=== PATIENT | female | born 1975 | race Caucasian/White ===

== ENCOUNTER → 2020-07-25 13:41 | Outpatient (CLI) | payer OTHER, SELFPAY ==
--- NOTE | ~2020-07-25 | MM_ITS ---
EXAMINATION: MM screening [place] BI w elder HISTORY: Screening TECHNIQUE: Craniocaudal and mediolateral oblique 3-D tomosynthesis images were obtained and synthetic 2-D images were generated. CAD analysis was submitted and interpreted. COMPARISON: Comparison to multiple prior studies sequentially, with oldest reviewed study dated 04/24. BREAST PARENCHYMAL COMPOSITION: The breasts are heterogeneously dense, which may obscure small masses . FINDINGS: There is no evidence of suspicious mass, calcification, or architectural distortion to sugg est malignancy in either breast. There has been no suspicious interval change. IMPRESSION: 1. No mammographic evidence of malignancy. 2. Recommend routine screening mammography in one year. BI-RADS Category 1: Negative Reviewed, dictated and finalized at location A. [employer]
== END ==
PROVIDERS: PCP Nurse Practitioner Family; Visit Provider Obstetrics & Gynecology Gynecology
DX: Z12.31 Encounter for screening mammogram for malignant neoplasm of breast (principal)
CPT/HCPCS: 77063; 77067

== ENCOUNTER → 2021-08-04 12:34 | Outpatient (CLI) | payer OTHER, SELFPAY ==
--- NOTE | ~2021-08-04 | MM_ITS ---
EXAMINATION: MM screening [facility] BI w elder HISTORY: Screening mammogram TECHNIQUE: Craniocaudal and mediolateral oblique 3-D tomosynthesis images were obtained and synthetic 2-D images were generated. CAD analysis was submitted and interpreted. COMPARISON: 07/25/2020, 03/31/2019, 03/04/2018 BREAST PARENCHYMAL COMPOSITION: The breasts are heterogeneously dense, which may obscure small masses . FINDINGS: There is no evidence of suspicious mass, calcification, or architectural distortion to sugg est malignancy in either breast. There has been no suspicious interval change. IMPRESSION: 1. No mammographic evidence of malignancy. 2. Recommend routine screening mammography in one year. BI-RADS Category 1: Negative Reviewed, dictated and finalized at location A.
== END ==
PROVIDERS: PCP Family Medicine; Visit Provider Nurse Practitioner
DX: Z12.31 Encounter for screening mammogram for malignant neoplasm of breast (principal)
CPT/HCPCS: 77063; 77067

== ENCOUNTER 2022-01-21 00:12 | Day surgery (SDC) | payer OTHER, SELFPAY ==
[2022-01-14 08:47] VITALS: BMI 22.0
--- NOTE | 2022-01-20 13:36 | P.PNAN_ITS ---
Anes - Initial Pre Proc Eval Procedure: Operation Date: 01/21/22 07:30 Proposed Procedures p Esophagogastroduodenoscopy & Screening Colonoscopy - Colin Nick MD Date/Time: 01/20/22 13:36 Surgeon: oClin Ca MD Pre Op Diagnosis: abnormal IGG, neoplasm screening Patient Data Age: 46 Gender: F Height: 1.65 m Weight: 60 kg Allergies Allergy/AdvReac Type Severity Reaction Status Date / Time No Known Allergies Allergy Unverified 09/10/21 09:56 Home Medications Medication Instructions Recorded Confirmed Type [id number] 500 - 1,000 cap PO BID 09/10/21 01/14/22 History 500 mg-1,000 unit-500 mcg cap (Animi-3 With Vitamin D) vitamin B12 1,000 mcg-folic acid 1,000 tablet sublingual 1XD 09/10/21 01/14/22 History 400 mcg sublingual tablet sodium sul 1.479 gram-potas ch See Rx Instructions PO PER PKG DIR 10/03/21 01/14/22 Rx 0.188 gram-magnes sul 0.225 gram #24 tabs tablet (Sutab) Lo Loestrin Fe 1 mg BYMOUTH 1XD 01/14/22 01/14/22 History Patient hx anesthesia problems: none Family hx anesthesia problems: none Results Review: All pre-operative results and documents have been reviewed as part of the pre- operative evaluation. [facility] Past Medical History Medical History (Updated 01/20/22 @ 13:36 by Jacob Bridges MD) Anxiety Surgical History Surgical History (Updated 09/10/21 @ 09:58 by Idania Bain MA) H/O spinal fusion Family History Family History (Updated 09/10/21 @ 10:05 by Idania Bain MA) Father Diabetes mellitus Heart disease Hypertension Mother Heart disease Hypertension Social History Social History (Updated 09/10/21 @ 09:58 by Idania Bain MA) Years smoked: 5 Smoking status: Former smoker Tobacco type: cigarettes Second hand tobacco smoke exposure: No Alcohol intake: never Substance use: never Substance use type: does not use Living arrangements: with family Gender identity (if verbalized by the patient): Female Spiritual care concerns: No Anes - Eval Final PreProcedure Day of Procedure 01/20/22 13:36 Patient weight: normal Heart: regular rate and rhythm Lungs: clear to auscultation and normal air movement Airway: Mallampati scale class II Neurological: alert and oriented Last oral intake: >/= 8 hours ASA classification: II Emergent: no Anesthetic plan: proceed Anesthesia type and monitoring: general GIVS Results Review: All pre-operative results and documents have been reviewed as part of the pre- operative evaluation. Informed Consent: The patient's anesthetic plan and its attendant risks and benefits were discussed with the patient/family/POA. Questions were solicited and answers provided to the satisfaction of the patient/family/POA.
[2022-01-21 06:41] VITALS: BP 134/82; PULSE 102; RESP 18; TEMP 36.3; O2SAT 100; BMI 21.7
[2022-01-21] MEDS: LACTATED RINGERS 1,000 ML 150 ML IV CONT (06:45)
--- NOTE | 2022-01-21 07:26 | PM.HPGS ---
History of Present Illness History of Present Illness Consent: Risks, benefits, and alternatives have been discussed and questions answered. Patient agrees to proceed with procedure. Chief complaint: abnormal IGG, neoplasm screening Narrative: Temitope Worrell is a 46 year old female with intermittent diarrhea, never had screening colonoscopy Review of Systems Constitutional: Constitutional: Denies headache(s) and Denies weakness Eyes: Eyes: Denies blurry vision ENT: Reports Normal hearing present, Denies headache(s) and Denies neck pain Cardiovascular: Cardiovascular: Denies chest pain and Denies dyspnea Respiratory: Respiratory: Denies dyspnea Gastrointestinal: Gastrointestinal: Reports no additional gastrointestinal complaints Genitourinary: Genitourinary: Denies dysuria Musculoskeletal: Musculoskeletal: Denies neck pain Integumentary/Breasts: Skin/Breast: Denies dry skin Neurologic: Reports Normal hearing present, Denies headache(s) and Denies weakness Psychiatric: Psychiatric: Denies anxiety Endocrine: Endocrine: Denies change in body appearance Hematologic/Lymphatic: Hematologic/Lymphatic: Denies easy bleeding Allergic/Immunologic: Allergic/Immunologic: Denies urticaria PMFSH Past Medical History Medical History (Updated 01/21/22 @ 07:27 by Colin Ca MD) Anxiety Irritable bowel syndrome with diarrhea Surgical History Surgical History (Updated 09/10/21 @ 09:58 by Idania Bain MA) H/O spinal fusion Family History Family History (Updated 09/10/21 @ 10:05 by Idania Bain MA) Father Diabetes mellitus Heart disease Hypertension Mother Heart disease Hypertension Social History Social History (Updated 09/10/21 @ 09:58 by Idania Bain MA) Years smoked: 5 Smoking status: Former smoker Tobacco type: cigarettes Second hand tobacco smoke exposure: No Alcohol intake: never Substance use: never Substance use type: does not use Living arrangements: with family Gender identity (if verbalized by the patient): Female Spiritual care concerns: No Meds Home Medications and Allergies Home Medications Medication Instructions Recorded Confirmed Type [id number] 500 - 1,000 cap PO BID 09/10/21 01/14/22 History 500 mg-1,000 unit-500 mcg cap (Animi-3 With Vitamin D) vitamin B12 1,000 mcg-folic acid 1,000 tablet sublingual 1XD 09/10/21 01/14/22 History 400 mcg sublingual tablet sodium sul 1.479 gram-potas ch See Rx Instructions PO PER PKG DIR 10/03/21 01/14/22 Rx 0.188 gram-magnes sul 0.225 gram #24 tabs tablet (Sutab) Lo Loestrin Fe 1 mg BYMOUTH 1XD 01/14/22 01/14/22 History Allergies Allergy/AdvReac Type Severity Reaction Status Date / Time No Known Allergies Allergy Unverified 09/10/21 09:56 Vital Signs Vital Signs - 24 hr 01/21/22 06:41 Temperature 97.3 F L Pulse Rate 102 H Respiratory Rate 18 Blood Pressure 134/82 Pulse Oximetry 100 Oxygen Delivery Room Air Exam Const: General: comfortable and no acute distress HENMT: General nose exam: Normal nares present Eyes: General: appearance normal, both eyes and all related structures Neck: Neck: no JVD Resp: Auscultation: clear to auscultation bilaterally Cardio: Rate: regular rate Rhythm: regular rhythm GI: Inspection: non-distended GI Palp: Yes Soft to palpation Skin: General skin exam: normal color Neuro: General: gait normal Speech: normal speech Extrem: General: normal to inspection Psych: Mental Status: mental status grossly normal Assessment and Plan Assessment and plan (1) Irritable bowel syndrome with diarrhea: Code(s): K58.0 - Irritable bowel syndrome with diarrhea Status: Acute Assessment and Plan: egd and colonoscopy with bx serology for celiac negative
--- NOTE | 2022-01-21 07:41 | SUR.OPER ---
EGD ended at 738. Colonoscopy began at 741.
[2022-01-21 07:57] VITALS: BP 87/55; PULSE 81; RESP 23; O2SAT 100
[2022-01-21 08:07] VITALS: BP 88/60; PULSE 68; RESP 17; O2SAT 100
[2022-01-21 08:17] VITALS: BP 96/63; PULSE 77; RESP 15; O2SAT 100
== END 2022-01-21 08:33 | disposition home or self-care (01) ==
PROVIDERS: PCP Family Medicine; Visit Provider Internal Medicine Gastroenterology
PROC: 0DJ08ZZ Inspection of Upper Intestinal Tract, Via Natural or Artificial Opening Endoscopic (ICD-10-PCS; CPT 43235; principal; 2022-01-21 07:30)
DX: Z12.11 Encounter for screening for malignant neoplasm of colon (principal); K29.50 Unspecified chronic gastritis without bleeding; K58.0 Irritable bowel syndrome with diarrhea; F41.9 Anxiety disorder, unspecified; Z87.891 Personal history of nicotine dependence; Z98.1 Arthrodesis status
CPT/HCPCS: 45380; 43239; 88305; J2704; J7120

== ENCOUNTER 2024-03-24 14:53 | Outpatient (CLI) | payer OTHER, SELFPAY ==
--- NOTE | ~2024-03-24 | MM_ITS ---
EXAMINATION: MM screening [place] BI w elder HISTORY: Screening TECHNIQUE: Craniocaudal and mediolateral oblique 3-D tomosynthesis images were obtained and synthetic 2-D images were generated. CAD analysis was submitted and interpreted. COMPARISON: Comparison to multiple prior studies sequentially, with oldest reviewed study dated 02/21. BREAST PARENCHYMAL COMPOSITION: Not dense: There are scattered areas of fibroglandular density. FINDINGS: There is no evidence of suspicious mass, calcification, or architectural distortion to sugg est malignancy in either breast. There has been no suspicious interval change. IMPRESSION: 1. No mammographic evidence of malignancy. 2. Recommend routine screening mammography in one year. BI-RADS Category 1: Negative Reviewed, dictated and finalized at location B. PUSHER
== END 2024-03-24 14:54 | disposition home or self-care (01) ==
PROVIDERS: PCP Family Medicine; Visit Provider Obstetrics & Gynecology Gynecology
DX: Z12.31 Encounter for screening mammogram for malignant neoplasm of breast (principal)
CPT/HCPCS: 77063; 77067

== ENCOUNTER 2024-03-24 14:57 | Outpatient (CLI) | payer OTHER, SELFPAY ==
--- NOTE | ~2024-03-24 | XR_ITS ---
XR hip RT 2V w AP pelvis DATE: 03/24/2024 15:22 INDICATION: Right low back pain, right hip pain. No injury. TECHNIQUE: AP pelvis. AP and lateral views of right hip COMPARISON: None FINDINGS: No pelvic fracture or bone destruction. Normal alignment at the pubic symphysis and sacroil iac joints. Hip joint spaces are symmetric and well preserved. No fracture, dislocation, avascular necrosis or jennifer ne destruction of the right hip. IMPRESSION: Negative Reviewed, dictated and finalized at location A. IMPRESSION: Negative
--- NOTE | ~2024-03-24 | XR_ITS ---
XR lumbar spine 2-3V DATE: 03/24/2024 15:22 INDICATION: Right low back pain, right hip pain TECHNIQUE: AP, lateral and coned lateral lumbosacral standing views COMPARISON: None FINDINGS: There is approximately 35 degrees rotatory levoscoliosis of the lumbar spine measured from L1 to L4. There is moderately severe degenerative disc disease at L1-2, L2-3 and L3-4. No fracture or bone destruction is evident. The sacroiliac joints are intact. Bilateral thoracic Osorio spinal rods are noted. IMPRESSION: Approximately 35 degrees rotatory levoscoliosis with multilevel moderately severe degener ative disc disease Reviewed, dictated and finalized at location A. IMPRESSION: Approximately 35 degrees rotatory levoscoliosis with multilevel mod erately severe degenerative disc disease
== END 2024-03-24 14:58 | disposition home or self-care (01) ==
LOC: MICIMG 14:58
PROVIDERS: PCP Family Medicine; Visit Provider Chiropractor
DX: M41.86 Other forms of scoliosis, lumbar region (principal); M51.369 Other intervertebral disc degeneration, lumbar region without mention of lumbar back pain or lower extremity pain
CPT/HCPCS: 72100; 73502

== ENCOUNTER 2024-10-13 12:37 | Outpatient (CLI) | payer OTHER, SELFPAY ==
--- NOTE | ~2024-10-13 | MR_ITS ---
MRI of the right hip Clinical history: Pain Technique: Coronal T1-weighted, T2-weighted, and proton-density fat-sat images, and axial T1-weighted and proton-density fat-sat images were acquired through the pelvis. Coronal T2-weighted images and c oronal, axial, and sagittal proton-density fat-sat images were acquired through the right hip. Follow ing intravenous administration of 14 cc MultiHance gadolinium, T1-weighted fat-sat imaging was perfor med in the axial and coronal planes. Findings: There is no fracture or avascular necrosis of either hip. Bone marrow signals of the proxim al femora and pelvic bones are unremarkable. Bilateral hip joint spaces are intact, without degenerat fredy or erosive arthropathy. No joint effusion. No right acetabular labral tear evident. Visual is musculature about the pelvis and right hip is unremarkable. No muscle atrophy or edema. No soft tissue mass or fluid collection seen. Denies tendons are intact. No abnormal postcontrast enhancement identified. IMPRESSION: Unremarkable exam. Reviewed, dictated and finalized at location . IMPRESSION: Unremarkable exam.
== END 2024-10-13 12:38 | disposition home or self-care (01) ==
LOC: MICIMG 12:39
PROVIDERS: PCP Family Medicine
DX: M25.551 Pain in right hip (principal)
CPT/HCPCS: 73723; A9577

== ENCOUNTER 2025-01-23 14:03 | Outpatient (CLI) | payer OTHER, SELFPAY ==
--- NOTE | ~2025-01-23 | MR_ITS ---
EXAMINATION: MR lumbar spine wo con DATE: 01/23/2025 15:15 INDICATION: Scoliosis TECHNIQUE: Magnetic resonance imaging (MRI) of the lumbar spine was performed without intravenous contrast. Sequences included sagittal T2-weighted FSE, sagittal T2-weighted FS FSE, sagittal T1-weighted FSE, and axial T2-weighted FSE. COMPARISON: CT dated 06/02/2024 FINDINGS: 30 degrees levoscoliosis from T12 through L3. 2 mm retrolisthesis L2 on L3. Metallic magnetic field artifact obscures the posterior elements portion of the central canal in the visualized lower thoracic spine associated with a 22-T12 instrumented posterior spinal fusion with bilateral vertical karen and laminar hook fixation but appreciated on CT dated 06/02/2024. Vertebral body heights are normal. There is severe right-sided disc height loss with associated fibrovascular degenerative endplate changes at L2-L3. Moderate disc right-sided predominant disc height loss with additional small regions of fibrovascular degenerative endplate changes at L1-L2. Marrow signal is otherwise normal throughout. Additional mild right-sided prominent disc height loss at T12-L1, mild left-sided foraminal disc height loss at L3-L4 and diffuse mild disc height loss at L5-S1. There are annular fissures at L1-L2, L2-L3 and L5-S1. The conus medullaris terminates at L1-L2. There is normal signal in the small visualized portion of the conus. Paravertebral soft tissues are unremarkable. The following disc levels are specifically discussed: T11-T12: The disc does not extend beyond the endplate margin. Likely no central canal or neural foraminal stenosis although evaluation is limited by magnetic field artifact. T12-L1: Disc is bulging. There is mild right and moderate left facet osteoarthritis. There is no neural foraminal stenosis. There is no central canal stenosis. L1-L2: Disc is bulging. There is moderate right and mild to moderate left facet joint osteoarthritis. There is mild left neural foraminal stenosis. There is mild central canal stenosis. L2-L3: Disc is bulging. There is mild bilateral facet joint osteoarthritis. There is mild left and mild to moderate right neural foraminal stenosis. There is mild central canal stenosis. L3-L4: Disc is mildly bulging. There is mild bilateral facet joint osteoarthritis. There is mild bilateral neural foraminal stenosis. There is minimal central canal stenosis. L4-L5: Disc is mildly bulging. There is mild to moderate right and mild left facet joint osteoarthritis. There is mild right and mild to moderate left neural foraminal stenosis. There is minimal central canal stenosis. L5-S1: Disc is mildly bulging. There is mild left and moderate right facet joint osteoarthritis. There is minimal bilateral neural foraminal stenosis. There is no central canal stenosis. IMPRESSION: 1. 30 degree lumbar levoscoliosis with spondylosis, severe at L2-L3, moderate at L1-L2 and otherwise mild. 2. Prominent metallic field artifact in the lower thoracic spine associated with an instrumented posterior spinal fusion. See separate thoracic spine MRI report dated 01/23/[address] dated 06/02/2024 for further detail. Reviewed, dictated and finalized at location A. IMPRESSION: 1. 30 degree lumbar levoscoliosis with spondylosis, severe at L2-L3, moderate a t L1-L2 and otherwise mild. 2. Prominent metallic field artifact in the lower thoracic spine associated wit h an instrumented posterior spinal fusion. See separate thoracic spine MRI repo rt dated 01/23/[address] dated 06/02/2024 for further detail.
--- NOTE | ~2025-01-23 | MR_ITS ---
EXAMINATION: MR cervical spine wo con DATE: 01/23/2025 15:11 INDICATION: Scoliosis TECHNIQUE: Magnetic resonance imaging (MRI) of the cervical spine was performed without intravenous contrast. Sequences included sagittal T2-weighted FSE, sagittal T2-weighted FS FSE, sagittal T1-weighted FSE, axial MERGE and axial T2- weighted FSE. COMPARISON: CT thoracic spine dated 06/02/2024 FINDINGS: Alignment is normal. There is metallic magnetic field artifact such with instrumentation for a thoracic posterior spinal fusion which begins at the level of T2. Vertebral body heights are normal. Bone marrow signal intensity is normal. Intervertebral disc heights are normal. Cord signal intensity is normal. Likely benign 1.2 cm left thyroid nodule. Cervical soft tissues are otherwise unremarkable. The following disc levels are specifically discussed: C2-C3: The disc does not extend beyond the endplate margin. There is no uncovertebral joint osteoarthritis. There is mild bilateral facet joint osteoarthritis. There is no neural foraminal stenosis. There is no central canal stenosis. C3-C4: The disc does not extend beyond the endplate margin. There is mild bilateral uncovertebral joint osteoarthritis. There is mild bilateral facet joint osteoarthritis. There is no neural foraminal stenosis. There is no central canal stenosis. C4-C5: The disc does not extend beyond the endplate margin. There is mild bilateral uncovertebral joint osteoarthritis. There is mild bilateral facet joint osteoarthritis. There is no neural foraminal stenosis. There is no central canal stenosis. C5-C6: Disc is mildly bulging There is mild bilateral uncovertebral joint osteoarthritis. There is mild right and moderate left facet joint osteoarthritis. There is minimal left neural foraminal stenosis. There is minimal central canal stenosis. C6-C7: Disc is mildly bulging. There is mild bilateral uncovertebral joint osteoarthritis. There is mild bilateral facet joint osteoarthritis. There is no neural foraminal stenosis. There is minimal central canal stenosis. C7-T1: The disc does not extend beyond the endplate margin. There is mild left uncovertebral joint osteoarthritis. There is mild bilateral facet joint osteoarthritis. There is no neural foraminal stenosis. There is no central canal stenosis. IMPRESSION: 1. Minimal cervical spondylosis. Reviewed, dictated and finalized at location A.
--- NOTE | ~2025-01-23 | MR_ITS ---
EXAMINATION: MR thoracic spine wo con DATE: 01/23/2025 15:12 INDICATION: Scoliosis with thoracic posterior spinal fusion TECHNIQUE: Magnetic resonance imaging (MRI) of the thoracic spine was performed without intravenous contrast. Sagittal localizer T1-weighted FSE of the cervicothoracic spine was obtained. Thoracic spine sequences included sagittal T2-weighted FSE, sagittal T1-weighted SE, Sagittal T2-weighted FS FSE, and axial T2-weighted FSE. COMPARISON: CT dated 06/02/2024 FINDINGS: 60 degrees thoracic dextroscoliosis measured betweenT6 and T12. There is extensive metallic magnetic field artifact associated with instrumented posterior spinal fusion bilateral laminar hooks beginning at T2 and extending through T12 as seen on prior CT. Sagittal alignment is normal. Vertebral body he ights are normal. Normal marrow signal.There is mild disc height loss along the convex right side of the upper thoracic spine at T1-T2 through T4-T5 and along the concave left side of the lower thoracic spine from T8-T9 through T10-T11. Significant portions of the central canal are obscured by the artifact from the posterior instrumentation. This includes essentially complete obscuration of the posterior elements and central canal from T3-T4 through T7 and from T10 through T12. There is normal signal in the visualized portions of the cord. The conus terminates at L1-L2. Where not obscured in the upper thoracic spine the discs do not extend beyond the endplate margins. Paravertebral soft tissues are unremarkable. IMPRESSION: 1. Markedly limited assessment of the thoracic spine due to metallic magnetic field artifact such with a T2-T12 instrumented posterior spinal fusion which obscures large portions of the central canal. 2. 60 degrees lower thoracic dextroscoliosis with expected asymmetric mild disc height loss along the convex left side of the lower thoracic dextro scoliosis and along the convex right side of the upper thoracic levocurvature. Reviewed, dictated and finalized at location A. IMPRESSION: 1. Markedly limited assessment of the thoracic spine due to metallic magnetic f ield artifact such with a T2-T12 instrumented posterior spinal fusion which obs cures large portions of the central canal. 2. 60 degrees lower thoracic dextroscoliosis with expected asymmetric mild disc height loss along the convex left side of the lower thoracic dextro scoliosis and along the convex right side of the upper thoracic levocurvature.
== END 2025-01-23 14:04 | disposition home or self-care (01) ==
LOC: GOSHIMG 14:03
PROVIDERS: PCP Family Medicine
DX: M41.84 Other forms of scoliosis, thoracic region (principal); M51.362 Other intervertebral disc degeneration, lumbar region with discogenic back pain and lower extremity pain; Z98.1 Arthrodesis status; M41.86 Other forms of scoliosis, lumbar region; M41.82 Other forms of scoliosis, cervical region
CPT/HCPCS: 72141; 72146; 72148